=== PATIENT | male | born 1960 | race African-American/Black ===

== ENCOUNTER 2019-09-03 00:45 | Inpatient (IN) | payer MEDICARE ==
[~2019-09-03] VITALS: Ht 180.3 cm; Wt 73.3 kg
[2019-09-03] VITALS (8 sets, daily range): BP systolic 95–118; BP diastolic 59–72
--- OUTSIDE RECORDS SUMMARY | 2019-09-03 00:47 | XMS REPORT ---
Author Author [facility] Address Unknown Phone Unavailable Care Team Providers Care Front End Engineer Name Role Phone Unavailable Unavailable Payers Payer Name Policy Type Policy Number Effective Date Expiration Date Problems This patient has no known problems. Allergies, Adverse Reactions, Alerts Allergy Name Allergy Type Status Severity Reaction(s) Onset Date Inactive Date Treating Clinician Comments No Known Contrast Allergies DA Active U 2006-04-18 00:00:00 No Known Drug Allergies DA Active U 2006-04-18 00:00:00 No Known Food Allergies DA Active U 2006-04-18 00:00:00 No Known Other Allergies DA Active U 2006-04-18 00:00:00 Medications This patient has no known medications. Results Test Description Test Time Test Comments Text Results Atomic Results Result Comments - CT ABD PELVIS W WO CONT 2018-12-05 14:33:00 Name: CORINNA NOGUERA [facility] : 1960 Age/S: 58 / M [address] [facility] Unit #: [id number] Loc: [place] [address] Phys: Maxwell Shepherd MD Acct: [id number] Dis Date: Status: REG CLI PHONE #: [phone] Exam Date: 12/05/2018 1244 FAX #: [phone] Reason: ABN WEIGHT LOSS EXAMS: CPT CODE: [id number] CT ABD PELVIS W WO CONT 75273 HISTORY: Abnormal weight loss. COMPARISON: None available. CT abdomen and pelvis with and without IV and with oral contrast: 100 mL of Isovue-370. Automated exposure control. CT of abdomen: The lung bases are clear. Small bulla in the right lower lobe. Liver is enhancing. No parenchymal mass. Gallbladder is without radiopaque stones. Unremarkable spleen. The spleen is not enlarged either. The stomach distended incompletely but it is normal in appearance. Pancreas enhanced homogeneously. Unremarkable adrenals. Kidneys are free from hydroureteronephrosis. Homogeneous enhancement. Bilateral excretion is noted. No calyceal stones are noted on the precontrast sequence. No pathologic adenopathy. Well-opacified abdominal and pelvic vasculature. No bowel obstruction or colitis or diverticulitis or enteritis. Constipation. CT PELVIS: Appendix is normal. Pelvic bowel loops are unobstructed. Constipation is noted. Unremarkable urinary bladder. Prostate measures 4.8 cm. No pelvic pathologic adenopathy. No free fluid or free air or abscess. Subcutaneous tissues and the musculature are normal in appearance. No lytic or blastic lesions are noted within skeleton. DJD. IMPRESSION: Normal appendix without bowel obstruction or colitis or diverticulitis or enteritis. PAGE 1 Signed Report (CONTINUED) Name: CORINNA NOGUERA [facility] : 1960 Age/S: 58 / M [address] [facility] Unit #: [id number] Loc: [place] [address] Phys: Maxwell Shepherd MD Acct: [id number] Dis Date: Status: REG CLI PHONE #: [phone] Exam Date: 12/05/2018 1244 FAX #: [phone] Reason: ABN WEIGHT LOSS EXAMS: CPT CODE: [id number] CT ABD PELVIS W WO CONT [id number] <Continued> No hydroureteronephrosis or calyceal stones. Unremarkable incompletely distended urinary bladder. No free fluid or free air or abscess. No pathologic adenopathy. at 1433 Reported and signed by: John Kearns M.D. CC: Hong Jenkins; Maxwell Shepherd MD Technologist:Yesiac Roth,RT(R),CT CTDI: DLP: Trnscb Date/Time: 12/05/2018 (1433) [email or web address] Orig Print D/T: S: 12/05/2018 (1436) CTDI: DLP: PAGE 2 Signed Report CREATININE W ESTIMATED GFR 2018-12-05 10:49:00 BEDSIDE CREATININE (test code=CREATBED) mg/dL 0.7-1.3 GLOMERULAR FILTRATION RATE POC (test code=GFRBED) 79 >60 CREATININE W ESTIMATED [id number] 10:49:00* Test Item Value Reference Range Comments BEDSIDE CREATININE (test code=CREATBED) 1.14 mg/dL 0.7-1.3 GLOMERULAR FILTRATION RATE POC (test code=GFRBED) > 60 >60 Previously reported result: 79 Edited by: CHARIS on 12/05/18:920002 1049: GFRBED previously reported as: 79 H
[2019-09-03] MEDS ORDERED: VANCOMYCIN 1GM/NS 250 ML 250 ML IV STA (00:58)
[2019-09-03] MEDS ORDERED: CEFEPIME HCL 1 GM VIAL IV ONE (01:00)
[2019-09-03] MEDS ORDERED: ACETAMINOPHEN 325 MG TAB PO ONE (01:00)
[2019-09-03] MEDS ORDERED: SODIUM CHLORIDE 0.9% 1000ML 1,000 ML IV SCH ×2 (01:00→02:30)
[2019-09-03 01:19] LABS: BASOPHILS # (AUTO) 0.1 (0.0-0.1); BASOPHILS % 0.6 % (0.0-1.0); HEMOGLOBIN 9.1 g/dL (14.0-18.0); LYMPHOCYTES # (AUTO) 0.3 (1.0-3.2); LYMPHOCYTES % 3.5 % (18.0-39.1); MEAN CORPUSCULAR HEMOGLOBIN 27.1 pg (28-32); MEAN CORPUSCULAR HGB CONC 31.4 g/dL (31-35); MEAN CORPUSCULAR VOLUME 86.3 fL (81-99); MONOCYTES # (AUTO) 0.1 (0.2-0.8); MONOCYTES % 1.5 % (4.4-11.3); NEUTROPHILS # (AUTO) 6.9 (2.1-6.9); NEUTROPHILS % 87.9 % (38.7-80.0); PLATELET COUNT 162 x10e3/uL (140-360); RED BLOOD COUNT 3.36 x10e6/uL (4.3-5.7); RED CELL DISTRIBUTION WIDTH 18.6 % (11.7-14.4)
[2019-09-03 01:38] LABS: ALANINE AMINOTRANSFERASE 13 IU/L (0-55); ALBUMIN 2.9 g/dL (3.5-5.0); ALBUMIN/GLOBULIN RATIO 1.1 (0.8-2.0); ALKALINE PHOSPHATASE 107 IU/L (40-150); BLOOD UREA NITROGEN 9 mg/dL (7-26); CARBON DIOXIDE 23 mmol/L (22-29); CREATINE KINASE 18 IU/L (30-200); GLUCOSE 104 mg/dL (74-118)
[2019-09-03 01:54] LABS: ANION GAP 15.4 mmol/L (8-16); CHLORIDE 102 mmol/L (98-107); POTASSIUM 3.4 mmol/L (3.5-5.1); SODIUM 137 mmol/L (136-145)
[2019-09-03] MEDS ORDERED: CEFEPIME 1GM/NS 0.9% 50 ML 50 ML IV ONE (02:07)
[2019-09-03 02:12] LABS: BUN/CREATININE RATIO 12 (6-25); CREATININE, SERUM 0.84 mg/dL (0.72-1.25); EST GLOMERULAR FILTRATION RATE > 60 ML/MIN (60-)
[2019-09-03 02:24] LABS: BILIRUBIN,URINE NEGATIVE (NEGATIVE); CLARITY,URINE SL CLOUDY (CLEAR); COLOR,URINE YELLOW (YELLOW); KETONES,URINE NEGATIVE (NEGATIVE); LEUKOCYTE ESTERASE ,URINE NEGATIVE (NEGATIVE); NITRITE,URINE NEGATIVE (NEGATIVE); PROTEIN,URINE DIPSTICK TRACE (NEGATIVE); URINE UROBILINOGEN 0.2 mg/dL (0.2 - 1)
[2019-09-03 02:39] LABS: BACTERIA,URINE MANY /HPF; EPITHELIAL CELLS,URINE FEW /LPF; MUCUS,URINE MODERATE (RARE)
--- NOTE | 2019-09-03 02:39 | Diagnostic Imaging Report ---
EXAMINATION: CHEST SINGLE (PORTABLE) INDICATION: Fever COMPARISON: None FINDINGS: AP view TUBES and LINES: Right upper extremity PICC tip terminates in the mid SVC. LUNGS: Lungs are well inflated. Lungs are clear. There is no evidence of pneumonia or pulmonary edema. PLEURA: No pleural effusion or pneumothorax. HEART AND MEDIASTINUM: The cardiomediastinal silhouette is unremarkable. BONES AND SOFT TISSUES: There are degenerative changes in the thoracic spine. Soft tissues are unremarkable. UPPER ABDOMEN: No free air under the diaphragm. IMPRESSION: No acute thoracic radiographic abnormality. Right upper extremity PICC tip terminates in the mid SVC. Signed by: Roberto Ramirez DO on 09/03/2019 2:35 AM
[2019-09-03] MEDS ORDERED: SODIUM CHLORIDE 0.9% 1000ML 1,000 ML IV ONE (03:15)
--- NOTE | 2019-09-03 07:15 | NUR ---
PATIENT IN BED RESTING WITH NO S/S OF DISCOMFORT. DENIED PAIN AT THIS TIME. DRESSING INTACT TO RIGHT KNEE. BED IN LOWER POSITION AND LOCKED, CALL LIGHT AT REACH. BED ALARM ACTIVATED.
--- NOTE | 2019-09-03 11:28 | NUR ---
MD IN TO SEE PATIENT, NEW ORDERS RECEIVED.
[2019-09-03] MEDS ORDERED: POTASSIUM CHLORIDE 20MEQ/100ML 200 ML IV ONE ×2 (11:30→15:00)
--- NOTE | 2019-09-03 13:39 | NUR ---
WOUND CARE CONSULT 59 YO MALE PATIENT SCREENING DONE DARI 14 PATIENT ON MODERATE PUP NO SIGNS OF SKIN BREAKDOWN PATIENT SKIN IN TACT NO REDNESS TO PRESSURE AREAS Addendum: 09/03/19 at 1343 by Parveen Azul RN Amended: Links added.
[2019-09-03] MEDS: CEFTRIAXONE SOD 1 GM/NS 50 ML 50 ML IV SCH (14:40)
[2019-09-03] MEDS ORDERED: POTASSIUM CHLORIDE 20MEQ/100ML 100 ML IV ONE (15:00)
--- NOTE | 2019-09-03 15:14 | NUR ---
PATIENT ASSISTED WITH DIAPER CHANGE. HAD A LARGE BM, IN BED WITH CALL LIGHT AT REACH.
--- NOTE | 2019-09-03 23:35 | NUR ---
PATIENT IS SHIVERING WITH A TEMPERATURE OF 102.2. TELEMETRY IN PLACE WITH HR OF 130. DR. PITTMAN CALLED AT 2330 TO NOTIFY OF CHANGE. WAITING FOR HIM TO CALL BACK.
[2019-09-04] VITALS (8 sets, daily range): BP systolic 95–138; BP diastolic 64–92
--- NOTE | 2019-09-04 01:15 | NUR ---
SPOKE WITH DR Antonia PITTMAN. ORDER TO GIVE TYLENOL [id number]. Addendum: 09/04/19 at 0117 by Alma Rosa Mccollum RN SPOKE WITH DR Antonia PITTMAN. ORDER TO GIVE TYLENOL 650MG Q4HR
[2019-09-04] MEDS: ACETAMINOPHEN 325 MG TAB PO PRN (01:30)
[2019-09-04 05:54] LABS: BASOPHILS % 0.2 % (0.0-1.0); HEMATOCRIT 24.1 % (38.2-49.6); HEMOGLOBIN 7.5 g/dL (14.0-18.0); LYMPHOCYTES # (AUTO) 0.6 (1.0-3.2); LYMPHOCYTES % 2.9 % (18.0-39.1); MEAN CORPUSCULAR HEMOGLOBIN 27.1 pg (28-32); MEAN CORPUSCULAR HGB CONC 31.1 g/dL (31-35); MONOCYTES # (AUTO) 1.6 (0.2-0.8); MONOCYTES % 8.1 % (4.4-11.3); NEUTROPHILS # (AUTO) 16.2 (2.1-6.9); NEUTROPHILS % 85.1 % (38.7-80.0); PLATELET COUNT 114 x10e3/uL (140-360); RED BLOOD COUNT 2.77 x10e6/uL (4.3-5.7)
[2019-09-04 06:15] LABS: ANION GAP 14.3 mmol/L (8-16); BLOOD UREA NITROGEN 8 mg/dL (7-26); BUN/CREATININE RATIO 10 (6-25); CALCIUM 8.1 mg/dL (8.4-10.2); CARBON DIOXIDE 22 mmol/L (22-29); CHLORIDE 106 mmol/L (98-107); CREATININE, SERUM 0.77 mg/dL (0.72-1.25); EST GLOMERULAR FILTRATION RATE > 60 ML/MIN (60-); GLUCOSE 84 mg/dL (74-118); POTASSIUM 3.3 mmol/L (3.5-5.1); SODIUM 139 mmol/L (136-145)
--- NOTE | 2019-09-04 06:59 | NUR ---
Patient laying in bed supine, HOB slightly elevated. Respirations are even and unlabored. Afebrile at the moment. PIV patent. Bed low, side rails up, wheels locked and call light within reach.
[2019-09-04 07:43] LABS: LYMPHOCYTES % (MANUAL) 4 % (19-48); MONOCYTES % (MANUAL) 7 % (3.4-9.0); NEUTROPHILS % (MANUAL) 89 % (40-74)
[2019-09-04 07:47] LABS: ANISOCYTOSIS MODERATE; MICROCYTOSIS SLIGHT; POIKILOCYTOSIS SLIGHT
[2019-09-04 07:49] LABS: RBC MORPHOLOGY COMMENT ABNORMAL; TEAR DROP CELLS FEW
[2019-09-04 07:50] LABS: PLATELET ESTIMATE SLIGHTLY DECREASED; PLATELET MORPHOLOGY COMMENT NORMAL
[2019-09-04 07:52] LABS: TOXIC GRANULATION MODERATE
[2019-09-04] MEDS ORDERED: CEFTRIAXONE1 GM IV (12:10)
[2019-09-04] MEDS ORDERED: HUMALOG100 UNIT/1 (12:10)
[2019-09-04] MEDS ORDERED: NORCO 5-325 TA1 EACH PO (12:10)
[2019-09-04] MEDS ORDERED: NYSTATIN100000 UNI PO (12:10)
[2019-09-04] MEDS ORDERED: ONDANSETRON HCL4 MG PO (12:10)
[2019-09-04] MEDS ORDERED: HYDRALAZINE HCL10 MG PO (12:10)
[2019-09-04] MEDS ORDERED: CARVEDILOL3.125 MG PO (12:10)
[2019-09-04] MEDS: CEFTRIAXONE SOD 1 GM/NS 50 ML 50 ML IV SCH (14:00)
--- NOTE | 2019-09-04 14:16 | NUR ---
Spoke with Dr. Curtis regarding DC plan. He states he plans to transfer pt back to SNF, once approved. States pt's WBC have increased but he can give pt IV abx at a SNF. CM spoke to pt at bedside and pt signed choice letter to return back to [facility]. Copy of choice letter placed in pt's transition of care folder. Signed copy placed in front of chart. PETEY Tucker will fax clinical packet once available.
--- NOTE | 2019-09-04 14:30 | NUR ---
SPOKE WITH DR PITTMAN AT BEDSIDE; REQUESTED REVIEW OF PT'S HOME MEDS FOR RESTART. ZAIN ORDERED 1 TIME DOSE OF POTASSIUM AND REPEAT OF CBC.
[2019-09-04] MEDS ORDERED: POTASSIUM CHLORIDE 20 MEQ TAB CR PO ONE (14:32)
--- NOTE | 2019-09-04 14:50 | NUR ---
EDUCATED ABOUT IMM, SIGNED, FILED IN CHART, WITH COPY LEFT WITH FAMILY AT BEDSIDE.
--- NOTE | 2019-09-04 14:52 | NUR ---
FAXED CLINICALS TO [facility] [phone] BUSY LINE, REP WILL COME WATERPROOF BAG CUTTING MACHINE OPERATOR
[2019-09-04 15:05] LABS: BASOPHILS % 0.2 % (0.0-1.0); HEMOGLOBIN 7.8 g/dL (14.0-18.0); LYMPHOCYTES # (AUTO) 0.7 (1.0-3.2); LYMPHOCYTES % 5.2 % (18.0-39.1); MEAN CORPUSCULAR HEMOGLOBIN 27.1 pg (28-32); MEAN CORPUSCULAR HGB CONC 31.2 g/dL (31-35); MEAN CORPUSCULAR VOLUME 86.8 fL (81-99); MONOCYTES % 7.3 % (4.4-11.3); NEUTROPHILS # (AUTO) 11.7 (2.1-6.9); NEUTROPHILS % 85.3 % (38.7-80.0); PLATELET COUNT 114 x10e3/uL (140-360); RED BLOOD COUNT 2.88 x10e6/uL (4.3-5.7); RED CELL DISTRIBUTION WIDTH 18.9 % (11.7-14.4)
[2019-09-05] VITALS (8 sets, daily range): BP systolic 108–137; BP diastolic 74–91
[2019-09-05] MEDS: ACETAMINOPHEN 325 MG TAB PO PRN ×2 (04:21→20:10)
[2019-09-05 05:11] LABS: BASOPHILS % 0.1 % (0.0-1.0); HEMATOCRIT 23.5 % (38.2-49.6); HEMOGLOBIN 7.5 g/dL (14.0-18.0); LYMPHOCYTES # (AUTO) 0.6 (1.0-3.2); LYMPHOCYTES % 6.1 % (18.0-39.1); MEAN CORPUSCULAR HEMOGLOBIN 27.1 pg (28-32); MEAN CORPUSCULAR HGB CONC 31.9 g/dL (31-35); MEAN CORPUSCULAR VOLUME 84.8 fL (81-99); MONOCYTES % 10.3 % (4.4-11.3); NEUTROPHILS # (AUTO) 8.2 (2.1-6.9); NEUTROPHILS % 81.8 % (38.7-80.0); PLATELET COUNT 116 x10e3/uL (140-360); RED BLOOD COUNT 2.77 x10e6/uL (4.3-5.7); RED CELL DISTRIBUTION WIDTH 18.5 % (11.7-14.4)
[2019-09-05 05:39] LABS: ANION GAP 11.2 mmol/L (8-16); BLOOD UREA NITROGEN 6 mg/dL (7-26); BUN/CREATININE RATIO 9 (6-25); CALCIUM 8.2 mg/dL (8.4-10.2); CARBON DIOXIDE 23 mmol/L (22-29); CHLORIDE 104 mmol/L (98-107); CREATININE, SERUM 0.65 mg/dL (0.72-1.25); EST GLOMERULAR FILTRATION RATE > 60 ML/MIN (60-); GLUCOSE 80 mg/dL (74-118); POTASSIUM 3.2 mmol/L (3.5-5.1); SODIUM 135 mmol/L (136-145)
--- NOTE | 2019-09-05 06:40 | NUR ---
Paged Dr. Sophie Curtis for abnormal labs. Dr sena digital production manager. Waiting for call back.
--- NOTE | 2019-09-05 06:45 | NUR ---
New orders received from Dr. Boyd for low potassium. No new orders for low hemoglobin. MD states to monitor the patient.
[2019-09-05] MEDS ORDERED: POTASSIUM CHLORIDE 10MEQ EA PO ONE ×2 (07:00→09:00)
--- NOTE | 2019-09-05 07:04 | NUR ---
received change of shift report, walking rounds completed; pt laying in bed, easily aroused, no signs of distress, will continue to monitor.
[2019-09-05] MEDS: MEROPENEM 500MG/ NS 50ML 50 ML IV SCH ×2 (13:05→21:20)
[2019-09-05 13:15] LABS: BAND NEUTROPHILS % (MANUAL) 3 %; LYMPHOCYTES % (MANUAL) 7 % (19-48); MONOCYTES % (MANUAL) 11 % (3.4-9.0); NEUTROPHILS % (MANUAL) 79 % (40-74)
[2019-09-05 13:17] LABS: PLATELET ESTIMATE SLIGHTLY DECREASED; PLATELET MORPHOLOGY COMMENT NORMAL; RBC MORPHOLOGY COMMENT NORMAL
--- NOTE | 2019-09-05 19:00 | NUR ---
Completed bedside report with morning nurse. Pt alert and orient to name. Lying in bed supine HOB 30 degrees. Denies pain at this time. Call light within reach. Bed low and locked. Bed alarm on.
--- NOTE | 2019-09-05 19:29 | NUR ---
walking rounds completed, change of shift report given to oncoming nightshift RN. pt in stable condition.
--- NOTE | 2019-09-05 20:10 | NUR ---
Temp 100.9 admin Tylenol 650mg. Skin warm to touch offered 8 oz water. No acute distress noted. Will continue to monitor.
[2019-09-06] VITALS (7 sets, daily range): BP systolic 116–149; BP diastolic 78–97
[2019-09-06] MEDS: ACETAMINOPHEN 325 MG TAB PO PRN ×2 (04:06→20:50)
--- NOTE | 2019-09-06 04:06 | NUR ---
Temp 100.6 admin Tylenol 650mg. Skin warm to touch offered 6 oz water. No acute distress noted. Will continue to monitor.
[2019-09-06 05:35] LABS: BASOPHILS % 0.2 % (0.0-1.0); HEMATOCRIT 26.1 % (38.2-49.6); HEMOGLOBIN 7.9 g/dL (14.0-18.0); LYMPHOCYTES # (AUTO) 0.4 (1.0-3.2); LYMPHOCYTES % 4.5 % (18.0-39.1); MEAN CORPUSCULAR HEMOGLOBIN 27.3 pg (28-32); MEAN CORPUSCULAR HGB CONC 30.3 g/dL (31-35); MEAN CORPUSCULAR VOLUME 90.3 fL (81-99); MONOCYTES # (AUTO) 0.9 (0.2-0.8); MONOCYTES % 10.9 % (4.4-11.3); NEUTROPHILS # (AUTO) 6.8 (2.1-6.9); NEUTROPHILS % 83.4 % (38.7-80.0); PLATELET COUNT 107 x10e3/uL (140-360); RED BLOOD COUNT 2.89 x10e6/uL (4.3-5.7); RED CELL DISTRIBUTION WIDTH 18.6 % (11.7-14.4)
[2019-09-06] MEDS: MEROPENEM 500MG/ NS 50ML 50 ML IV SCH ×3 (05:59→21:41)
[2019-09-06 06:10] LABS: ALANINE AMINOTRANSFERASE 7 IU/L (0-55); ALBUMIN 2.5 g/dL (3.5-5.0); ALBUMIN/GLOBULIN RATIO 0.9 (0.8-2.0); ALKALINE PHOSPHATASE 84 IU/L (40-150); ANION GAP 11.9 mmol/L (8-16); BLOOD UREA NITROGEN 5 mg/dL (7-26); BUN/CREATININE RATIO 8 (6-25); CALCIUM 8.4 mg/dL (8.4-10.2); CARBON DIOXIDE 24 mmol/L (22-29); CHLORIDE 102 mmol/L (98-107); CREATININE, SERUM 0.64 mg/dL (0.72-1.25); EST GLOMERULAR FILTRATION RATE > 60 ML/MIN (60-); GLUCOSE 93 mg/dL (74-118); POTASSIUM 3.9 mmol/L (3.5-5.1); SODIUM 134 mmol/L (136-145)
--- NOTE | 2019-09-06 07:01 | NUR ---
received shift change report from police shift commander RN, walking rounds completed, pt resting in bed, easily aroused, no signs of distress.
--- NOTE | 2019-09-06 13:59 | Diagnostic Imaging Report ---
EXAMINATION: CHEST SINGLE (PORTABLE) INDICATION: Bacteremia, asses for possible pneumonia. COMPARISON: Chest radiograph 09/03/2019. FINDINGS: TUBES and LINES: None. LUNGS: Lungs are moderately inflated. Central vascular congestion without pulmonary edema. No evidence of lobar pneumonia. PLEURA: No pleural effusion or pneumothorax. HEART AND MEDIASTINUM: The cardiomediastinal silhouette is unremarkable. BONES AND SOFT TISSUES: No acute osseous abnormality. UPPER ABDOMEN: No free air under the diaphragm. IMPRESSION: No evidence of lobar pneumonia. Signed by: Dr. Jeannette Alarcon MD on 09/06/2019 1:56 PM
--- NOTE | 2019-09-06 19:18 | NUR ---
night RN notified to pass along to AM nurse the need for attending to follow up with pt's oncologist regarding continuing his treatment upon discharge from [facility].
--- NOTE | 2019-09-06 19:50 | NUR ---
Received report from morning nurse. Pt alert and orient to name. Lying in bed supine HOB 30 degrees. Denies pain at this time. Call light within reach. Bed low and locked. Bed alarm on.
--- NOTE | 2019-09-06 20:29 | NUR ---
Will follow up with morning nurse to contact Pt's oncologist regarding his treatment upon discharge from [facility]. Dr. Huber Hewitt # [phone].
[2019-09-07] VITALS (8 sets, daily range): BP systolic 107–127; BP diastolic 63–82
[2019-09-07 05:27] LABS: BASOPHILS % 0.3 % (0.0-1.0); HEMATOCRIT 25.3 % (38.2-49.6); HEMOGLOBIN 7.9 g/dL (14.0-18.0); LYMPHOCYTES # (AUTO) 0.7 (1.0-3.2); LYMPHOCYTES % 9.1 % (18.0-39.1); MEAN CORPUSCULAR HEMOGLOBIN 26.7 pg (28-32); MEAN CORPUSCULAR HGB CONC 31.2 g/dL (31-35); MEAN CORPUSCULAR VOLUME 85.5 fL (81-99); MONOCYTES # (AUTO) 1.1 (0.2-0.8); MONOCYTES % 14.9 % (4.4-11.3); NEUTROPHILS # (AUTO) 5.5 (2.1-6.9); NEUTROPHILS % 74.9 % (38.7-80.0); PLATELET COUNT 136 x10e3/uL (140-360); RED BLOOD COUNT 2.96 x10e6/uL (4.3-5.7); RED CELL DISTRIBUTION WIDTH 17.9 % (11.7-14.4)
[2019-09-07 06:02] LABS: ANION GAP 13.8 mmol/L (8-16); BLOOD UREA NITROGEN 5 mg/dL (7-26); BUN/CREATININE RATIO 8 (6-25); CALCIUM 8.7 mg/dL (8.4-10.2); CARBON DIOXIDE 24 mmol/L (22-29); CHLORIDE 99 mmol/L (98-107); CREATININE, SERUM 0.62 mg/dL (0.72-1.25); EST GLOMERULAR FILTRATION RATE > 60 ML/MIN (60-); GLUCOSE 72 mg/dL (74-118); POTASSIUM 3.8 mmol/L (3.5-5.1); SODIUM 133 mmol/L (136-145)
[2019-09-07] MEDS: MEROPENEM 500MG/ NS 50ML 50 ML IV SCH ×3 (06:20→21:46)
--- NOTE | 2019-09-07 07:00 | NUR ---
RCD PT AT BED PT IS ALERT AND ORIENTED PT RESTING ON BED NO SIGNS OF ANY DISTRESS NOTED IV PATENT BY SALINE FLUSH BED LOW AND LOCKED CALL LIGHT IN REACH
--- NOTE | 2019-09-07 07:06 | NUR ---
Rounds completed with morning nurse. Pt lying in bed with covers over head. Denies pain or discomfort at this time. No acute distress noted
--- NOTE | 2019-09-07 09:13 | NUR ---
Spoke with Dr. Boyd regarding LTAC order. Informed him that Dr. Curtis gave order for SNF eval on Saturday and we started the process Saturday afternoon. Dr. Boyd said that he had to change pt's antibiotic to Merrem, since cultures came back, and if SNF is able to administer Merrem, then pt can return to SNF. Caitlin ANGELO spoke with Rachel, director statistical programming at [facility], and was informed that they are able to give pt Merrem.
--- NOTE | 2019-09-07 10:24 | NUR ---
Spoke with Dr. Curtis regarding dc plan. He states that pt needs LTAC since he has bacteremia and pt needs to be monitored on a day to day basis. CM spoke to pt at bedside and informed of LTAC order. Pt gave choice for [facility]. Signed copy placed in chart. Copy to pt's transition of care folder. Destiny Coley with [facility] was informed of referral and will be by to milk pickup driver clinicals.
[2019-09-07] MEDS: ACETAMINOPHEN 325 MG TAB PO PRN ×2 (11:30→20:41)
--- NOTE | 2019-09-07 11:39 | Consultation ---
DATE OF CONSULTATION: REASON FOR CONSULTATION: Sepsis and bacteremia with ESBL. HISTORY OF PRESENT ILLNESS: This patient, who is a 59-year-old male, history of non-Hodgkin lymphoma, history of hypertension, diabetes mellitus, not a good source of information. There is no family for me to interview. The patient comes into the emergency room with altered mental status. The patient apparently has been sick for a few days with fever and chills. The patient is immunocompromised. He was recently in the hospital. He comes in with fever. In emergency room, he had temperature of 103. The patient was given Tylenol and admitted. Apparently, he was in [facility] 2 days ago. He was on Rocephin apparently for a PICC line. The patient was admitted here and found to be septic. Blood cultures are showing gram-negative gregg. I was asked to see him and he showed a Proteus mirabilis ESBL. The urine culture was negative, so I was asked to see him. He is currently lying in bed comfortable and little bit confused. PAST MEDICAL HISTORY: As above. PAST SURGICAL HISTORY: Unavailable. ALLERGIES: NKA. SOCIAL HISTORY: There is no smoking, drug abuse, or alcohol abuse. FAMILY HISTORY: Could not be obtained. REVIEW OF SYSTEMS: He denies any. HEENT: Negative. PULMONARY: Negative. CARDIAC: Negative. : Negative. GI: Negative. SKIN: There is no rash, however. LABORATORY DATA: Reviewed. When he first came, his white count was 19.05, today is 7.33, his hemoglobin 7.9. His platelet was 114, 136 today. Sodium 133, potassium 3.8, and creatinine 0.62. Liver enzymes were within normal limit. Chest x-ray was negative. PHYSICAL EXAMINATION: GENERAL: He is currently alert, not really good source of information, seems confused to me, answer simple question yes or no, but could not provide meaningful information. HEENT: He is not icteric. Normocephalic. NECK: Supple. No JVD. No lymphadenopathy. No thyromegaly. CHEST: Clear bilateral. HEART: S1 and S2. No S3, S4, or murmur. ABDOMEN: Soft. Bowel sounds present. No tenderness. EXTREMITIES: No edema. SKIN: There is no rash. His laboratory data reviewed. His chart reviewed. When he first came, he had 101.1. IMPRESSION: 1. Sepsis, on admission. 2. Bacteremia. It could be due to a line, which he had before he came to us. I am not so sure. I do not have all the records. 3. Intraabdominal process is also possibility. Agree with meropenem. We will get a CT abdomen and pelvis. We will get the old record. 4. History of Hodgkin lymphoma, history of diabetes, anemia of chronic disease, and thrombocytopenia. 5. We will follow with you. Discussed with the medical team. MD MATTHEW Guidry/SHUKRI /[id number]
--- NOTE | 2019-09-07 12:12 | NUR ---
PT WENT TO PROCEDURE IN SAFE CONDITION
--- NOTE | 2019-09-07 13:34 | Diagnostic Imaging Report ---
EXAM: CT Abdomen and Pelvis WITH intravenous contrast INDICATION: Severe sepsis COMPARISON: None. TECHNIQUE: Abdomen and pelvis were scanned utilizing a multidetector helical scanner from the lung base to the pubic symphysis after administration of IV contrast. Coronal and sagittal reformations were obtained. Routine protocol was performed. Scan was performed during portal venous phase. IV CONTRAST: 100mL of Isovue 370 ORAL CONTRAST: Water RADIATION DOSE: Total DLP: 387.98 mGy*cm Dose modulation, iterative reconstruction, and/or weight based adjustment of the mA/kV was utilized to reduce the radiation dose to as low as reasonably achievable. FINDINGS: LOWER THORAX: Bibasilar dependent subsegmental atelectasis left greater than right. Trace left pleural effusion. HEPATOBILIARY: Diffuse hepatic steatosis. No focal liver lesion. No biliary ductal dilation. Unremarkable gallbladder. SPLEEN: No splenomegaly. PANCREAS: No focal masses or ductal dilatation. ADRENALS: No adrenal nodules. KIDNEYS/URETERS: No hydronephrosis, stones, or solid mass lesions. PELVIC ORGANS/BLADDER: Unremarkable. PERITONEUM / RETROPERITONEUM: No free air or fluid. LYMPH NODES: No lymphadenopathy. VESSELS: Scattered atherosclerotic calcifications of the nonaneurysmal abdominal aorta and major branches. GI TRACT: No abnormal bowel thickening. No bowel obstruction. Normal appendix. BONES AND SOFT TISSUES: No acute osseous injury. No suspicious lytic or blastic lesions. IMPRESSION: No acute findings in the abdomen or pelvis. Diffuse hepatic steatosis. Trace left pleural effusion. Signed by: Henna Bloom MD on 09/07/2019 1:30 PM
--- NOTE | 2019-09-07 14:20 | NUR ---
paged and notified the blood c/s report he said he knows about it
[2019-09-07] MEDS ORDERED: SODIUM CHLORIDE 0.9% 50ML 50 ML ONE (14:31)
[2019-09-07] MEDS ORDERED: IOPAMIDOL 370 MG/ML 200 ML INFUS..BTL INJ ONE (14:31)
--- NOTE | 2019-09-07 19:14 | NUR ---
PT RESTING ON BED BED SIDE REPORT GIVEN TO ONCOMING NURSE
--- NOTE | 2019-09-07 20:49 | NUR ---
temp 100.9, prn tylenol given.
[2019-09-07] MEDS ORDERED: IBUPROFEN 600 MG TAB PO STA (23:48)
--- NOTE | 2019-09-07 23:53 | NUR ---
HR 148, BP 162/113, T 101.6, RR 26. Tylenol given 2 hrs prior. Patient admitted for sepsis. Rapid Response called. ER physician to see patient. New orders received for Motrin, blood culture, and lactic acid.
[2019-09-08] VITALS (8 sets, daily range): BP systolic 106–144; BP diastolic 71–76
--- NOTE | 2019-09-08 00:07 | NUR ---
Paged Dr. Antonia Curtis, spoke to Kirsten. Received new orders for Vancomycin 1 gm X1.
--- NOTE | 2019-09-08 00:07 | NUR ---
Paged Dr. Miller regarding change in condition, awaiting call back.
[2019-09-08] MEDS ORDERED: VANCOMYCIN 1GM/NS 250 ML 250 ML IV ONE (00:15)
--- NOTE | 2019-09-08 00:42 | NUR ---
Temp 101.1, HR 123, RR 22, BP 112/76. IV Vancomycin running.
--- NOTE | 2019-09-08 01:38 | NUR ---
temp 100.2.
--- NOTE | 2019-09-08 02:23 | NUR ---
Dr. Miller called back, no new orders received, will see patient in AM.
[2019-09-08] MEDS: MEROPENEM 500MG/ NS 50ML 50 ML IV SCH (05:33)
--- NOTE | 2019-09-08 07:22 | NUR ---
received change of shift report, walking rounds completed, pt resting, easily arounds, alert, no signs of distress.
--- NOTE | 2019-09-08 10:20 | NUR ---
Spoke with Destiny Little. Still pending insurance authorization.
[2019-09-08] MEDS: GENTAMICIN SULFATE 400 MG in SODIUM CHLORIDE 0.9% 100 ML 100 ML IV SCH (10:27)
[2019-09-08] MEDS: MEROPENEM 1GM 100 ML IV SCH ×2 (15:11→22:02)
--- NOTE | 2019-09-08 16:21 | NUR ---
MOT initiated and placed with pt's packet at nurses station.
--- NOTE | 2019-09-08 19:00 | NUR ---
Received patient from day nurse, patient is alert and oriented, safety and fall precautions maintained.
[2019-09-08] MEDS: ACETAMINOPHEN 325 MG TAB PO PRN (20:00)
[2019-09-09] VITALS (8 sets, daily range): BP systolic 96–126; BP diastolic 42–83
[2019-09-09] MEDS: MEROPENEM 1GM 100 ML IV SCH ×3 (06:19→22:00)
--- NOTE | 2019-09-09 06:55 | NUR ---
patient endorsed to next shift for continuity of care.
--- NOTE | 2019-09-09 07:00 | NUR ---
received change of shift report, walking rounds completed, pt sleeping, easily aroused, no s/s distress, will continue to monitor.
--- NOTE | 2019-09-09 10:45 | NUR ---
Spoke with Destiny. Informed that insurance has denied request for LTAC. P2P has been requested for Dr. Curtis. Dr. Tabitha Daniels will be calling. Per Destiny, they are making all efforts for this to happen today. If it does not, then it will be on Saturday since they are closed Saturday and over the weekend.
--- NOTE | 2019-09-09 13:16 | Progress Note ---
DATE: SUBJECTIVE: Mr. Deleon, who is lying in bed comfortably. There is no new complaint. REVIEW OF SYSTEMS: HEENT: Negative. Pulmonary: Negative. CARDIAC: Negative. He is still weak. LABORATORY DATA: Reviewed. Blood culture when he first came showed Proteus mirabilis ESBL. Repeat cultures were negative. His white count is 7.33, hemoglobin 7.9. PHYSICAL EXAMINATION: GENERAL: He is currently alert, comfortable, does not seem to be in acute distress. VITAL SIGNS: Stable, currently afebrile. HEENT: Not icteric. NECK: Supple. CHEST: Clear. HEART: S1, S2. No S3, S4, or murmur. ABDOMEN: Soft. Bowel sounds present. No tenderness. EXTREMITIES: No edema. IMPRESSION: 1. Bacteremia with extended-spectrum beta-lactamases. To finish meropenem for 2 weeks. Gentamicin for 2 weeks. To monitor gentamicin trough. To monitor CBC and Chem panel. 2. Agree with long-term acute-care evaluation. 3. Debility, would need PT and OT. 4. History of lymphoma. We will consult with Hematology-Oncology. We will follow. MD MATTHEW Guidry/SHUKRI /[id number]
--- NOTE | 2019-09-09 16:27 | NUR ---
Spoke with Destiny with [facility]. Stated denial was upheld after P2P. Dr. Curtis will appeal the denial. [facility] will request for expedited appeal.
--- NOTE | 2019-09-09 18:16 | NUR ---
Nutrition Intervention Note RD Recommendation(s) for Physician: Pt meets criteria for moderate protein-calorie malnutrition -Ensure Enlive BID for added nutrition -Recommend diabetic diet Plan of Care: RD following, monitoring for tolerance and adequacy Nutrition reason for involvement: Length of stay RD Assessment (09/09/19) Pt is a 59 year old male admitted with severe sepsis. Pt stated his appetite has been down and eating < 50% of meals for the past 5-6 months. Pt reported he did not eat anything today. Per documentation, pt has been consuming 0-75% of meals during admission. Pt also reported he had lost wt but was unsure of the amount or his usual wt. There are no previous weights in chart. No N/V/D/C reported and no chewing/swallowing issues. Pt was interested in Ensure Principal Problems/Diagnoses: severe sepsis PMH: non-hodgkin lymphoma, HTN, and diabetes I/O: 1542/0 GI: last recorded BM 09/08 Skin: no pressure ulcers Labs: (09/09/19) Na 133, BUN 5, Creat 0.62, Glu 72 Meds: (09/09/19) Meropenem, Gentamicin, NaCl Ht: 71 inches Wt: 162 lbs BMI: 22.6 k/m2 IBW: 172 lbs Malnutrition Evaluation (09/09/19). The patient meets criteria for MODERATE protein-calorie malnutrition. Energy intake: <75% of estimated energy requirements for >3 months Weight loss: Unable to assess Fat loss: no loss identified Muscle loss: Mild/moderate depletion in lower extremities/calf region Supporting Evidence: Fluid accumulation: No edema per MD note Functional Status: unable to evaluate Nutrition Prescription (Diet Order): Cardiac diet Estimated Nutritional Needs: 2035-2904 calories/day (25-35 kcal/kg CBW) 74-110 g protein/day (1-1.5 g pro/kg CBW) Diet Adequacy: Not meeting calorie needs, Not meeting protein needs Tolerance: Tolerating PO Diet Education Needs Assessment: Diet education not indicated Nutrition Care Level: moderate Nutrition Diagnosis: Moderate protein kcal malnutrition related to h/o inadequate energy intake per pt report as evidenced by pt meeting <75% of energy needs for > 1 month and mild/moderate muscle depletion in lower extremities Goal: Patient will meet 75-100% of estimated needs by follow up Progress: N/A Interventions: carbohydrate-modified diet, Commercial beverage, Recommended Modifications Monitoring/Evaluation: -Total energy intake, Total protein intake, Modified diet, Liquid supplement, Weight change Signed: Abi Oneill RD, LD
--- NOTE | 2019-09-09 18:50 | NUR ---
Report received from morning nurse. Pt alert and orient to name. Lying in bed supine HOB flat. Denies pain at this time. Call light within reach. Bed low and locked. Bed alarm on.
--- NOTE | 2019-09-09 19:40 | NUR ---
Pg'd Dr. Carroll regarding speaking with Pt's primary oncologist. Dr. Huber Hewitt [phone]. Awaiting call back.
[2019-09-09] MEDS: ACETAMINOPHEN 325 MG TAB PO PRN (22:00)
--- NOTE | 2019-09-09 22:00 | NUR ---
T100.6, admin Tylenol 650mg PO, denies pain or chills. Temp warm to touch. Will continue to monitor.
[2019-09-10] VITALS (7 sets, daily range): BP systolic 86–104; BP diastolic 53–69
[2019-09-10] MEDS: ACETAMINOPHEN 325 MG TAB PO PRN (05:00)
--- NOTE | 2019-09-10 05:00 | NUR ---
T101, admin Tylenol 650mg PO, denies pain or chills. Temp warm to touch. Will continue to monitor.
[2019-09-10] MEDS: MEROPENEM 1GM 100 ML IV SCH ×3 (05:58→22:00)
--- NOTE | 2019-09-10 07:00 | NUR ---
BEDSIDE SHIFT REPORT RECEIVED FROM NIGHT RN. PT DENIES NEEDS AT THIS TIME.
[2019-09-10] MEDS: GENTAMICIN SULFATE 400 MG in SODIUM CHLORIDE 0.9% 100 ML 100 ML IV SCH (10:47)
[2019-09-10] MEDS ORDERED: SODIUM CHLORIDE 0.9% 250ML 250 ML IV ONE (16:00)
[2019-09-10] MEDS ORDERED: FUROSEMIDE INJ 10 MG/ML 2 ML VIAL IV ONE (16:15)
--- NOTE | 2019-09-10 19:00 | NUR ---
BLOOD READY AT 1815. NIGHT NURSE GIVEN REPORT TO INFUSE PRBC'S.
--- NOTE | 2019-09-10 19:56 | NUR ---
RECEIVED PT IN BED AOX2 .JORGE LUIS PAIN LH 20 G S/L .TELE #5 ST .CALL LIGHT WITH IN REACH .CONTINUE TO MONITOR
[2019-09-11] VITALS (9 sets, daily range): BP systolic 90–100; BP diastolic 61–77
[2019-09-11] MEDS ORDERED: SODIUM CHLORIDE 0.9% 250ML 250 ML ONE ×2 (04:58→13:21)
[2019-09-11] MEDS: MEROPENEM 1GM 100 ML IV SCH ×3 (05:30→21:41)
--- NOTE | 2019-09-11 05:38 | NUR ---
INFUSED I UNIT OF BLOOD .NO REACTION NOTED .CALL LIGHT WITH IN REACH .CONTINUE TO MONITOR .
--- NOTE | 2019-09-11 07:05 | NUR ---
RCD PT AT BED PT IS ALERT AND ORIENTED PT RESTING ON BED IV PATENT PT IN BLOOD TRANSFUSION BED LOW AND LOCKED CALL LIGHT IN REACH
--- NOTE | 2019-09-11 07:18 | NUR ---
2ND UNIT OF BLOOD IS INFUSING .BEDSIDE REPORT GIVEN TO THE ONCOMING NURSE
[2019-09-11] MEDS: ACETAMINOPHEN 325 MG TAB PO PRN (07:27)
--- NOTE | 2019-09-11 09:15 | NUR ---
BLOOD TRANSFUSION COMPLETED VITALS CHECKED PT RESTING ON BED BED LOW AND LOCKED CALL LIGHT IN REACH
[2019-09-11 11:33] LABS: BASOPHILS % 0.6 % (0.0-1.0); EOSINOPHILS # (AUTO) 0.2 (0.0-0.4); EOSINOPHILS % 2.5 % (0.0-6.0); HEMATOCRIT 33.6 % (38.2-49.6); LYMPHOCYTES % 14.9 % (18.0-39.1); MEAN CORPUSCULAR HEMOGLOBIN 28.1 pg (28-32); MEAN CORPUSCULAR HGB CONC 32.7 g/dL (31-35); MEAN CORPUSCULAR VOLUME 85.7 fL (81-99); MONOCYTES # (AUTO) 0.9 (0.2-0.8); NEUTROPHILS # (AUTO) 4.5 (2.1-6.9); NEUTROPHILS % 67.3 % (38.7-80.0); PLATELET COUNT 275 x10e3/uL (140-360); RED BLOOD COUNT 3.92 x10e6/uL (4.3-5.7); RED CELL DISTRIBUTION WIDTH 16.3 % (11.7-14.4)
--- NOTE | 2019-09-11 18:38 | NUR ---
PT RESTING ON BED BED SIDE REPORT GIVEN TO ONCOMING NURSE
[2019-09-12] VITALS (8 sets, daily range): BP systolic 90–129; BP diastolic 62–76
[2019-09-12] MEDS: MEROPENEM 1GM 100 ML IV SCH ×3 (05:52→21:40)
--- NOTE | 2019-09-12 09:00 | NUR ---
Received pt from previous shift, pt resting
--- NOTE | 2019-09-12 11:20 | NUR ---
[facility]ed [facility] per request to [phone] for ltac appeal.
[2019-09-12] MEDS: GENTAMICIN SULFATE 400 MG in SODIUM CHLORIDE 0.9% 100 ML 100 ML IV SCH (11:49)
--- NOTE | 2019-09-12 15:10 | Progress Note ---
DATE: Internal Medicine Progress Note SUBJECTIVE: The patient is doing well. No significant complaint. OBJECTIVE: HEART: Regular rhythm. Normal S1, S2 sound. LUNGS: Clear bilaterally. VITAL SIGNS: Temperature 99.2, heart rate 98 per minute, respiratory rate 16 per minute, blood pressure 101/66, and oxygen saturation 97%. LABORATORY DATA: On the blood work, we have CBC; white blood count 6.72, hemoglobin 11.0, hematocrit 33.6, MCV is 85.7, and platelet count is 275,000. On the chemistry, we have BMP; sodium 133, potassium 3.8, chloride 99, CO2 of 24, BUN 5, creatinine 0.62, glucose 72. Lactic acid is 0.6, it was elevated at 4.4. Calcium 8.7, total bilirubin 0.6, AST 12, ALT 7, alkaline phosphatase 84. FINAL DIAGNOSES: 1. Sepsis. 2. Uncontrolled diabetes mellitus type 2. 3. Chronic anemia. 4. Multiple myeloma. 5. Hyponatremia. PLAN OF TREATMENT: Will continue with meropenem, gentamicin, IV fluids, Tylenol 650 mg q.4 hours as needed. Infectious Disease is seeing him in the meantime and also Oncology seen the patient. MD SHENA Blevins/SHUKRI /[id number]
--- NOTE | 2019-09-12 16:18 | NUR ---
pt refusing several attempts for therapy today, refused at least 3x times this week Addendum: 09/12/19 at 1620 by Stu Alexander PTA Amended: Links added.
--- NOTE | 2019-09-12 18:41 | NUR ---
pt resting in bed, no c/o pain or distress. report given to oncoming shift
[2019-09-13] VITALS (8 sets, daily range): BP systolic 90–102; BP diastolic 51–73
[2019-09-13] MEDS: MEROPENEM 1GM 100 ML IV SCH ×3 (06:14→22:07)
--- NOTE | 2019-09-13 07:00 | NUR ---
RCD PT AT BED PT IS ALERT AND ORIENTED PT RESTING ON BED IV PATENT BED LOW AND LOCKED CALL LIGHT IN REACH
[2019-09-13] MEDS: ACETAMINOPHEN 325 MG TAB PO PRN (08:00)
--- NOTE | 2019-09-13 13:30 | Progress Note ---
DATE: Internal Medicine Progress Note SUBJECTIVE: The patient is doing well. No significant complaint. PHYSICAL EXAMINATION: HEART: Showed regular rhythm. Normal S1 and S2 sound. LUNGS: Clear bilaterally. ABDOMEN: Soft. VITAL SIGNS: Blood pressure 96/67, temperature 97.3, heart rate 100 per minute, respiratory rate 18 per minute, and oxygen saturation 100%. LABORATORY DATA: On the BMP; sodium 133, potassium 3.8, chloride 99, CO2 24, BUN 5, creatinine 0.62, and glucose 72. On the CBC; white blood count 6.72, hemoglobin 11.0, hematocrit 33.6, and platelet count 275,000. AST 12, ALT 7, total bilirubin 0.6, and alkaline phosphatase 84. FINAL IMPRESSION: 1. Sepsis. 2. Uncontrolled diabetes mellitus type 2. 3. Chronic anemia of chronic disease. 4. Multiple myeloma. 5. Hyponatremia. PLAN OF TREATMENT: Continue meropenem, gentamicin, IV fluids, and Tylenol 650 mg q.4 hours as needed. MD SHENA Blevins/SHUKRI /[id number]
--- NOTE | 2019-09-13 18:40 | NUR ---
PT RESTING ON BED BED SIDE REPORT GIVEN TO ONCOMING NURSE
[2019-09-14] VITALS: BP 113/83
[2019-09-14 04:00] VITALS: BP 113/85
[2019-09-14] MEDS: MEROPENEM 1GM 100 ML IV SCH ×2 (05:32→14:44)
--- NOTE | 2019-09-14 07:00 | NUR ---
BEDSIDE SHIFT REPORT RECEIVED FROM THE MINING HELPER RN. EDUCATED PT ABOUT FALL PRECAUTIONS. CALL LIGHT WITH IN EASY REACH. INSTRUCTED PT TO USE CALL LIGHT FOR ALL THE NEEDS. PT VERBALIZED UNDERSTANDING. BED IS LOW AND LOCKED. SIDE RAILS X2. BED ALARM IS ON. PT DENIES NEEDS AT THIS TIME.
[2019-09-14 08:03] VITALS: BP 105/78
[2019-09-14 08:17] VITALS: BP 105/78
--- NOTE | 2019-09-14 09:39 | NUR ---
Spoke with Destiny regarding appeal. She states that she just found out denial was upheld. SADIE spoke with Dr. Curtis to inform him of appeal outcome. He stated that pt is too sick to go to SNF at this time.
[2019-09-14] MEDS: GENTAMICIN SULFATE 400 MG in SODIUM CHLORIDE 0.9% 100 ML 100 ML IV SCH (10:30)
--- NOTE | 2019-09-14 11:08 | NUR ---
Spoke to Dr. Curtis after he rounded on pt. He states we can send pt back to SNF once we get approval. Continue on IV abx per Dr. Miller's recommendations. SADIE spoke to Dr. Miller. States pt needs to continue on Merrem for 1 week. SADIE called JUANY Davis with [facility] and updated him. He will come by to chart picker clinicals.
[2019-09-14 11:50] VITALS: BP 94/67
--- NOTE | 2019-09-14 13:12 | NUR ---
WOUND CARE CONSULT FOR F/U SCREENING 59 YO MALE PATIENT RECEIVED FROM [facility] 14 ON MODERATE PUP STATUS ON ALTERNATING PRESSURE SURFACE PATIENT CONTINUES TO REMAIN FREE FROM AND SKIN INJURY OR PRESSURE RELATED WOUNDS INDEPENDENT WITH TURNING AND OFFLOADING Addendum: 09/14/19 at 1314 by Parveen Azul RN Amended: Links added.
--- NOTE | 2019-09-14 15:26 | NUR ---
[facility] DISCHARGE INFORMATION PATIENT HAS BEEN ACCEPTED TO: NAME: [facility] ADDRESS: [address] [place] MD: ZAIN ROOM: 119 NURSE CALL REPORT TO: [phone] IMM SIGNED AND OBTAINED (if applicable): IMM THE FOLLOWING DOCUMENTS MUST ACCOMPANY PATIENT FOR TRANSFER: COPIED CHART: CLINICALS AND PASRR
--- NOTE | 2019-09-14 15:27 | NUR ---
EDUCATED ABOUT IMM, SIGNED, FILED IN CHART, WITH COPY LEFT WITH FAMILY AT BEDSIDE.
[2019-09-14 16:20] VITALS: BP 91/66
--- NOTE | 2019-09-14 16:30 | NUR ---
CALLED [facility] AND REPORT GIVEN TO CLIFF LEWIS. PT IS TRANSFERRING TO 119
--- NOTE | 2019-09-14 18:20 | NUR ---
PT TRANSFERRED TO [facility]. TELE REMOVED. IV IN PLACE @ FOR FUTURE ABX USE PER THE INSTRUCTION FROM DR. PITTMAN. PT DENIED FURTHER NEEDS.
--- NOTE | 2019-09-14 23:46 | Consultation ---
DATE OF CONSULTATION: 09/09/[address] Reza dictating a consultation to Dr. Tony Curtis. HISTORY OF PRESENT ILLNESS: Mr. Deleon is a 59-year-old black gentleman referred to me for evaluation of anemia. No history of melena. No history of hematochezia. No history of hematemesis. No history of hemoptysis. HISTORY OF PAST ILLNESS: History of non-Hodgkin's lymphoma. The patient also claims that he is being treated for multiple myeloma. The patient claims that he had chemotherapy recently, however, the physician was treating him for non-Hodgkin's lymphoma is at [facility]. SOCIAL HISTORY: Noncontributory. FAMILY HISTORY: Noncontributory. ALLERGIES: REPORTED NONE. MEDICATIONS: At this time. 1. Meropenem. 2. Gentamicin. 3. Normal saline. 4. Tylenol. REVIEW OF SYSTEMS: HEENT: Normal. CARDIAC: Normal. RESPIRATORY: Multiple episodes of bronchopneumonia. GI: Normal. : Normal. MUSCULOSKELETAL: Normal. SKIN AND BREASTS: Normal. NEUROENDOCRINE: Essentially normal. HEMATOLOGICAL: The patient is being treated for non-Hodgkin's lymphoma. PHYSICAL EXAMINATION: GENERAL: A cachectic male. NECK: No palpable adenopathy. HEART: Within normal limits. LUNGS: Clear. ABDOMEN: Obese. There is no hepatosplenomegaly. RECTAL: Deferred. CENTRAL NERVOUS SYSTEM: Essentially normal. EXTREMITIES: Very emaciated, cachectic male. LABORATORY DATA: Hemoglobin was 7.9, hematocrit 25.3, platelets 136,000, white count 7330. Sodium 133, potassium 3.8, chloride 99, CO2 24, BUN 5, creatinine 0.6, bilirubin 0.6, SGOT 12, SGPT is 7, alkaline phosphatase 84. IMPRESSION: 1. History of non-Hodgkin's lymphoma and multiple myeloma. 2. Hypertension. 3. Diabetes mellitus. 4. Sepsis. 5. Transient leukemoid reaction. 6. Anemia of chronic disease. 7. Hypokalemia. 8. Hypoproteinemia. 9. Hypoalbuminemia. 10. Left pleural effusion. PLAN, COMMENTS, AND SUGGESTIONS: Suggest antibiotics. Suggest blood cultures. The patient will be referred back to the physician who is taking care of his myeloma. Thank you very much for allowing me to participate in the management of this patient. The patient was treated aggressively. The patient was transfused to 11 g and the patient being transferred to his long-term care. Even though I have consulted with the patient's brother, the patient's brother does not know what type of lymphoma he has been treated. However, most of the consultants have put down Hodgkin lymphoma rather than non-Hodgkin's lymphoma. However, I do strongly suggest the patient be referred back to the medical oncologist who is taking care of him at [facility]. MD ROULA Queen/MODL /[id number]
== END 2019-09-14 18:23 | DRG 872 ==
LOC: ER 00:45 → ERHOLD 03:05 → MED/SURG2 04:53
PROC: 30243N1 Transfusion of Nonautologous Red Blood Cells into Central Vein, Percutaneous Approach (ICD-10-PCS; principal; 2019-09-10)
DX: A41.50 Gram-negative sepsis, unspecified (principal); Z16.11 Resistance to penicillins; Z16.12 Extended spectrum beta lactamase (ESBL) resistance; J90 Pleural effusion, not elsewhere classified; C81.90 Hodgkin lymphoma, unspecified, unspecified site; C90.00 Multiple myeloma not having achieved remission; E87.1 Hypo-osmolality and hyponatremia; E44.0 Moderate protein-calorie malnutrition; R65.20 Severe sepsis without septic shock; B96.4 Proteus (mirabilis) (morganii) as the cause of diseases classified elsewhere; I10 Essential (primary) hypertension; E11.9 Type 2 diabetes mellitus without complications; E87.6 Hypokalemia; E77.8 Other disorders of glycoprotein metabolism; E88.09 Other disorders of plasma-protein metabolism, not elsewhere classified; D63.8 Anemia in other chronic diseases classified elsewhere; D72.823 Leukemoid reaction; Z68.22 Body mass index [BMI] 22.0-22.9, adult
CPT/HCPCS: 36415; 71045; 74177; 80048; 80053; 81001; 82550; 82553; 82948; 83605; 84484; 85025; 86850; 86900; 86920; 87040; 87070; 87071; 87086; 87186; 87205; 93005; 96360; 96365; 97139; 99283; J0692; J0696; J1580; J1940; J3370; J3480; J7030; J7050; P9016; Q9967